=== PATIENT | male | born 1995 | race Caucasian/White ===

== ENCOUNTER 2016-09-22 10:09 | Emergency (ER) | payer OTHER ==
[~2016-09-22 10:09] MED LIST: HYDROCORTISONE TP
== END 2016-09-22 12:55 | disposition home or self-care (01) ==
LOC: CFTX 10:09 → CED 10:09 → CFTX 12:35
DX: H65.02 Acute serous otitis media, left ear (principal); F17.210 Nicotine dependence, cigarettes, uncomplicated
CPT/HCPCS: 99282

== ENCOUNTER 2016-11-17 11:47 | Emergency (ER) | payer OTHER | END 2016-11-17 12:20 | disposition home or self-care (01) | LOC: CED 11:47 → CFTX 11:47 | DX: M26.602 Left temporomandibular joint disorder, unspecified (principal) | CPT/HCPCS: 99282 ==

== ENCOUNTER 2016-12-12 13:13 | Emergency (ER) | payer OTHER ==
[~2016-12-12] VITALS: Ht 180.3 cm; Wt 88.5 kg
--- NOTE | ~2016-12-12 | CT71 ---
[facility] A Service of [facility] RADIOLOGY TEXT RESULTS PATIENT: KELLY GRAFF LOCATION: [facility] : [birth year] UNIT #: [id number] AGE: [address]: Alida Beck SEX: M ORDER DR: [id number] [facility] [address] [place], [place] [address] [id number] MR#: [id number] Acc #: [id number] NAME: KELLY GRAFF : 1995 SEX: M STUDY DATE/TIME: 12/12/2016 14:02 UNIT: TX ROOM: STUDY DESCRIPTION: CT Head Wo Contrast Attending Physician: Alida Beck Pa-C Ordering Physician: Alida Beck Pa-C [facility] RE[facility] This report is preliminary unless electronic signature is present EXAM CT scan of the head without contrast. INDICATIONS Headache and nasal drainage for [address] exam was performed with one or more of the following radiation dose reduction techniques: Automatic exposure control, adjustment of mA and/or kV according to patient size, and iterative reconstruction. FINDINGS Unenhanced images were obtained through the brain. There is marked right nasal septal deviation. The left frontal sinus has an air-fluid level within it and there is some soft tissue filling the anterior left ethmoid sinuses. The ventricles and subarachnoid spaces are normal. There are no masses or extraaxial fluid collections. IMPRESSION 1. Left frontal and ethmoid sinus disease with an air-fluid level in the left frontal sinus. 2. The nasal septum is deviated to the right significantly. 3. Otherwise, normal. Dictated by... Gerber No M.D. THIS IS AN ELECTRONICALLY VERIFIED REPORT Gerber No M.D. at 12/13/2016 7:08 AM FEL/raina [facility] A Service [facility] RADIOLOGY TEXT RESULTS PATIENT: KELLY GRAFF LOCATION: [facility] : [birth year] UNIT #: [id number] AGE: [address]: Alida Beck SEX: M ORDER DR: TD: 12/12/2016 21:15 JOB #: [id number] MEDICAL IMAGING REPORT Page 1 of 1 COPY
== END 2016-12-12 15:00 | disposition home or self-care (01) ==
LOC: CED 13:13 → CFTX 13:13
DX: J01.90 Acute sinusitis, unspecified (principal)
CPT/HCPCS: 70450; 99284; J1885